=== PATIENT | male | born 1965 | race Caucasian/White ===

== ENCOUNTER 2023-10-15 08:46 | Day surgery (SDC) | payer BC ==
[2023-10-14 16:49] VITALS: BMI 30.2
[2023-10-15] MEDS ORDERED: fentaNYL 50 mcg/mL 1 mL Vial ONE ×3 (10:09→12:18)
[2023-10-15] MEDS ORDERED: Methylene Blue 50 MG/10 ML AMPUL ONE (11:15)
[2023-10-15] MEDS ORDERED: Bacitracin Zinc Ointment 30 gm TUBE ONE (11:16)
[2023-10-15] MEDS ORDERED: Bupivacaine 0.25% HCL 30 ML VIAL ONE (11:16)
[2023-10-15] MEDS ORDERED: EPINEPHrine 1 MG/ML VIAL ONE (11:16)
[2023-10-15] MEDS ORDERED: HYDROmorphone 0.5 MG/0.5 ML SYRINGE ONE ×2 (11:26→11:27)
[2023-10-15] MEDS ORDERED: Lidocaine 2% PF 5 ML VIAL ONE (11:27)
[2023-10-15] MEDS ORDERED: Ondansetron PF 4 MG/2 ML Vial ONE (11:27)
[2023-10-15] MEDS ORDERED: cefOXitin 2 GM VIAL ONE (11:27)
[2023-10-15] MEDS ORDERED: Sodium Chloride 0.9% 100 ML ONE (11:27)
[2023-10-15] MEDS ORDERED: Dexamethasone 20 MG/5 ML VIAL ONE (11:27)
[2023-10-15] MEDS ORDERED: PROPOFOL 20 ML ONE (11:28)
[2023-10-15] MEDS ORDERED: Ketorolac Tromethamine 30 MG (1 mL) VIAL ONE (11:59)
[2023-10-15] MEDS ORDERED: Morphine 4 MG/ML VIAL ONE ×3 (12:34→14:17)
[2023-10-15] MEDS ORDERED: HYDROcodone/Acetaminophen 5/325 mg Tablet ONE (14:59)
== END 2023-10-15 15:39 | disposition home or self-care (01) ==
LOC: SDC 08:46
PROVIDERS: ATTEND Surgery
PROC: 0D8R0ZZ Division of Anal Sphincter, Open Approach (ICD-10-PCS; principal; 2023-10-15)
DX: K60.2 Anal fissure, unspecified (principal); E78.00 Pure hypercholesterolemia, unspecified; I10 Essential (primary) hypertension; Z79.899 Other long term (current) drug therapy; Z87.891 Personal history of nicotine dependence
CPT/HCPCS: J0171; J0665; J0694; J1100; J1170; J1885; J2001; J2270; J2405; J2704; J3010; J3490; Q9968